=== PATIENT | female | born 1935 | race Caucasian/White ===

== ENCOUNTER → 2019-11-02 | Day surgery (SDC) | payer OTHER ==
[~2019-11-02] VITALS: Ht 154.9 cm; Wt 58.5 kg
[~2019-11-02] MED LIST: AMLO-483 PO; ASPI-543 PO; BUPIVACAINE 0.25% INJ 50ML VIAL ONE; DOCU-94 PO; FAMO-12 PO; HEPARIN SODIUM (PORCINE) 5000 UNITS/ML 1ML VIAL ONE; HYDR-4833 GT; LABETALOL HCL 5 MG/ML 4ML SYRINGE IV ONE; LIDOCAINE W/ EPINEPHRINE 1% 20ML VIAL ONE; MEMA1TAB5 PO; MONT10TA34 PO; MORPHINE SULF(PF) 0.5MG/ML 10ML VIAL ONE; OXYB5TAB61 PO; PRAV20TA3 PO; [UNRECOGNIZED DRUG - CODE] PO; ceFAZolin 1GM/50ML 100 ML IV ONE
[2019-11-02 09:03] VITALS: BP 118/58
== END | disposition home or self-care (01) ==
LOC: SUR 06:10
PROVIDERS: ATTEND Surgery
DX: R22.32 Localized swelling, mass and lump, left upper limb (principal); C76.42 Malignant neoplasm of left upper limb; Z79.82 Long term (current) use of aspirin; Z79.899 Other long term (current) drug therapy; Z98.890 Other specified postprocedural states; Z20.828 Contact with and (suspected) exposure to other viral communicable diseases
CPT/HCPCS: 11606; 12032; 88304; J0690; J1644; J2270; J3490; U0003